=== PATIENT | male | born 1990 | race Caucasian/White ===

== ENCOUNTER 2021-01-09 09:30 | Emergency (ER) | payer OTHER, SELFPAY ==
[~2021-01-09] VITALS: Ht 170.2 cm; Wt 81.6 kg
[2021-01-09 09:34] VITALS: BP 154/87
--- NOTE | 2021-01-09 09:40 | NUR ---
30 y/o M coming in from home with c/c COVID-19 symptoms. Patient reports loss of taste x 1 week, denies SOB, cough, fever/chills, body aches, muscle pain, fatigue, weakness. Patient states colonoscopy procedure scheduled for Saturday at [facility] and requires a Covid test prior to procedure. Patient SpO2 97% on room air. Lung sounds CTA; RR even/unlabored. Patient placed onto chair per request. PMH: Epidural lower back Meds: Denies NKA Sx: Denies
--- NOTE | 2021-01-09 09:40 | NUR ---
Penelope and novel Covid swabs collected, walked to lab and handed to CPT [place].
--- NOTE | 2021-01-09 09:40 | NUR ---
Dr. Morrow examining patient.
--- NOTE | 2021-01-09 09:40 | NUR ---
PT TAKEN TO BED 3
[2021-01-09 10:00] VITALS: BP 154/87
--- NOTE | 2021-01-09 10:00 | NUR ---
Patient discharged with v/s stable. Written and verbal after care instructions given and explained. Patient verbalized understanding. Ambulatory with steady gait. All questions addressed prior to discharge. Advised to follow up with PMD.
== END 2021-01-09 10:00 | disposition home or self-care (01) ==
LOC: MED 09:30
DX: R43.9 Unspecified disturbances of smell and taste (principal); Z20.822 Contact with and (suspected) exposure to COVID-19
CPT/HCPCS: 87426; 99283; U0003

== ENCOUNTER 2021-01-11 04:55 | Day surgery (SDC) | payer OTHER ==
[~2021-01-11] VITALS: Ht 170.2 cm; Wt 81.2 kg
[2021-01-11] MEDS ORDERED: LIDOCAINE 2% 100 MG/5 ML UJET TP ONE ×2 (07:26→07:55)
[2021-01-11] MEDS ORDERED: MIDAZOLAM 5 MG/5 ML VIAL ONE (07:26)
[2021-01-11] MEDS ORDERED: fentaNYL citrate 0.05 MG/ML VIAL ONE (07:26)
[2021-01-11] MEDS ORDERED: diphenhydrAMINE 50 MG/ML VIAL ONE (07:26)
[2021-01-11] MEDS ORDERED: MIDAZOLAM 2 MG/2 ML VIAL IVP ONE (07:55)
[2021-01-11] MEDS ORDERED: fentaNYL citrate 0.05 MG/ML VIAL IVP ONE (07:55)
== END 2021-01-11 08:25 | disposition home or self-care (01) ==
LOC: MDS 04:55 → MMU 06:08 → EDUNIT# 07:30 → MDS 08:25
PROVIDERS: ATTEND Internal Medicine Gastroenterology
DX: K62.5 Hemorrhage of anus and rectum (principal); K50.90 Crohn's disease, unspecified, without complications; R63.4 Abnormal weight loss; Z79.899 Other long term (current) drug therapy
CPT/HCPCS: 45380; J2250; J3010; J1200